=== PATIENT | female | born 1990 | race Caucasian/White ===

== ENCOUNTER 2019-04-20 07:50 | Emergency (ER) | payer OTHER ==
[~2019-04-20] VITALS: Ht 170.2 cm; Wt 104.3 kg
[2019-04-20 08:12] LABS: URINE BILIRUBIN NEGATIVE (Negative); URINE BLOOD NEGATIVE (Negative); URINE CLARITY CLEAR; URINE COLOR YELLOW; URINE GLUCOSE-RANDOM NEGATIVE (Negative); URINE KETONES NEGATIVE (Negative); URINE LEUKOCYTES-REFLEX NEGATIVE (Negative); URINE NITRITE-REFLEX NEGATIVE (Negative); URINE PROTEIN NEGATIVE (Negative); URINE UROBILINOGEN 0.2 E.U./dl (0.2-1.0)
[2019-04-20] MEDS ORDERED: DORYX MPC120 MG PO (08:12)
[2019-04-20 08:28] LABS: CREATININE 0.9 mg/dL (0.6-1.3); POTASSIUM 3.8 mmol/L (3.5-5.1)
[2019-04-20] MEDS ORDERED: ZPAK PO (09:10)
[2019-04-20 09:14] LABS: HEMOGLOBIN 14.8 gm/dL (12.0-15.0); MCH 28.7 pg (26.0-34.0); MCHC 34.5 g/dL (28.0-37.0); MCV 83.1 fL (80.0-100.0); MPV 8.3 fl. (7.2-11.1); RBC 5.17 mil/uL (4.20-5.00); RDW-CV 13.1 % (10.5-14.5); WBC 9.6 thou/uL (4.0-11.0)
[2019-04-20 09:30] VITALS: BP 107/63
== END 2019-04-20 09:31 | disposition home or self-care (01) ==
LOC: M.ERS 07:50
PROVIDERS: Emergency Medicine Emergency Medical Services
DX: R05 Cough (principal); F17.210 Nicotine dependence, cigarettes, uncomplicated